=== PATIENT | male | born 1965 | race African-American/Black ===

== ENCOUNTER 2016-11-24 15:35 | Emergency (ER) | payer OTHER ==
[~2016-11-24] VITALS: Ht 180.3 cm; Wt 97.5 kg
[~2016-11-24 15:35] MED LIST: AMLO5TAB2 OR; ASPI81CH43 GT; CARV25TA55 OR; FURO10SO OR; GLIP-116 OR; ISOS10TA2 OR; LISI40TA OR; NITROSTAT; SIMV-8 OR; SPIR25TA89 OR
[2016-11-24 15:46] VITALS: BP 137/97
[2016-11-24 16:30] LABS: Basophils # (auto) 0 uL; Basophils % (auto) 0.2 % (0.0-2.0); CONDITION Y; DEFINITIVE SEE PRINTOUT; Eosinophils # (auto) 0.1 uL; Eosinophils % (auto) 1.3 % (0.0-7.0); Hematocrit 40.8 % (41.0-53.0); Hemoglobin 12.9 g/dL (13.5-17.5); Lymphocytes # (auto) 2.3 uL; Lymphocytes % (auto) 29.5 % (10.0-50.0); Mean Corpuscular Hemoglobin 23.6 pg (28.0-32.0); Mean Corpuscular Hgb Conc. 31.7 g/dL (32.0-36.0); Mean Corpuscular Volume 74.7 fL (80.0-100.0); Mean Platelet Volume 10.2 fL (7.4-10.4); Monocytes # (auto) 0.9 uL; Monocytes % (auto) 11.9 % (0.0-12.0); Neutrophils # (auto) 4.5 uL; Neutrophils % (auto) 57.1 % (37.0-80.0); Platelet Count (auto) 210 10^3/uL (140-450); Red Cell Distribution Width 12.9 % (11.6-16.0); White Blood Cell 7.9 10^3/uL (4.4-10.8)
[2016-11-24 17:02] LABS: Albumin 3.6 g/dL (3.4-5.0); BUN/Creatinine Ratio 11.8; Calcium 8.7 mg/dL (8.5-10.1); Potassium 4.2 mmol/L (3.5-5.1)
[2016-11-24 17:06] LABS: Bilirubin, Total 0.9 mg/dL (0.2-1.0); Total Protein 7.5 g/dL (6.4-8.2)
== END 2016-11-24 22:49 | disposition left against medical advice (07) ==
LOC: ER 15:37
DX: R07.89 Other chest pain (principal); Z53.21 Procedure and treatment not carried out due to patient leaving prior to being seen by health care provider
CPT/HCPCS: 36415; 71020; 80053; 84484; 85025; 93005

== ENCOUNTER → 2016-12-04 | Day surgery (SDC) | payer OTHER ==
[~2016-12-04] VITALS: Ht 180.3 cm; Wt 97.5 kg
[~2016-12-04] MED LIST changes: +ATOR40TA52 PO; +CARV25TA55 PO; +DIG0125T PO; +FLUMAZENIL 0.1 MG/ML INJ 10ML MDV IV ONE; +GLIP-116 PO; +LISI-646 PO; +MIDAZOLAM HCL 1MG/1ML-2 ML VIAL IV ONE; +NALOXONE HCL 0.4 MG/ML VIAL ONE; +PREG50CA PO; +RIVA20TA PO; +SPIR25TA89 PO; +fentaNYL CITRATE 100 MCG/2 ML VL IV ONE
[2016-12-04] MEDS: LIDOCAINE VISCOUS 2% 15ML UD MT PRN ×4 (08:59→09:15)
== END | disposition home or self-care (01) ==
LOC: CATH 06:57
PROVIDERS: ATTEND Internal Medicine
DX: I48.91 Unspecified atrial fibrillation (principal); Z95.1 Presence of aortocoronary bypass graft
CPT/HCPCS: 92960; 93312; J2250